=== PATIENT | male | born 1950 | race Caucasian/White ===

== ENCOUNTER 2022-07-25 07:32 | Outpatient (REF) | payer OTHER, SELFPAY ==
--- NOTE | ~2022-07-25 | MR_ITS ---
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 COMPARISON: None available. TECHNIQUE: Multiplanar, multisequence imaging of the brain was performed without intravenous contrast. FINDINGS: There is no acute infarction, mass, hemorrhage, or extra-axial collection. There is mild degree of diffuse brain parenchymal volume loss with prominence of ventricles and sulci. Mild nonspecific foci of T2/FLAIR hyperintensity are seen within the cerebral white matter. There is a focus of chronic microhemorrhage within the left periatrial white matter. There is subjective impression of decreased size of the caudate heads. The frontal horn width to intercaudate distance ratio (FH/CC) is abnormally low, estimated as 1.4. The flow voids of the major intracranial arteries appear intact. The bones and extracranial soft tissues are unremarkable. There is mild paranasal sinus mucosal thickening without fluid levels. MR/MR head/brain wo con IMPRESSION: 1. No acute infarct, mass lesion, intracranial hemorrhage, or evidence of hydrocephalus. Background changes of mild chronic microangiopathy. 2. Elevated frontal horn width to intercaudate distance ratio (FH/CC) and subjective impression of caudate head volume loss which can be seen in the setting of Nolan's disease but should be clinically correlated.
== END 2022-07-25 07:33 | disposition home or self-care (01) ==
LOC: HO.MRI 07:32
PROVIDERS: PCP Internal Medicine; Visit Provider Psychiatry & Neurology Neurology
DX: G10 Huntington's disease (principal)
CPT/HCPCS: 70551

== ENCOUNTER 2025-04-08 12:55 | Emergency (ER) | payer MEDICARE, OTHER, SELFPAY ==
[2025-04-08] VITALS (10 sets, daily range): BP systolic 109–158; BP diastolic 60–87; PULSE 69–91; RESP 16–25; TEMP 36.9–37.3; O2SAT 93–98; BMI 25.4
--- NOTE | 2025-04-08 | ECG_ITS ---
Test Reason : weakness Blood Pressure : */* mmHG Vent. Rate : 79 BPM Atrial Rate : 79 BPM P-R Int : 146 ms QRS Dur : 80 ms QT Int : 390 ms P-R-T Axes : 0 5 34 degrees QTcB Int : 447 ms Normal sinus rhythm Normal ECG No previous ECGs available Referred By: Generic ED Physician Electronically Signed By: ALOK ARGUELLES MD
--- NOTE | ~2025-04-08 | US_ITS ---
EXAMINATION: US TRIPLEX LOWER EXTREMITY, RIGHT CLINICAL INFORMATION: Right leg swelling. COMPARISON: None available. TECHNIQUE: Color-flow triplex imaging with spectral analysis and compression Doppler were performed on the right lower extremity. FINDINGS: Respiratory variation, normal compression and augmented flow are noted throughout the right lower extremity. The visualized common femoral vein, superficial femoral vein, profunda femoral vein, popliteal vein and midcalf peroneal and posterior tibial venous segments show no evidence of deep venous thrombosis. There is no Braxton's cyst. US/US venous duplex LE RT IMPRESSION: No evidence of deep venous thrombosis involving the right lower extremity. Electronically signed by: Alexis Melton MD 04/08/2025 03:29 PM EDT
--- NOTE | ~2025-04-08 | CT_ITS ---
CLINICAL HISTORY: weakness, fall CT Brain without contrast Comparison: MR/SR - MR BRAIN WITHOUT IV CONTRAST - 07/25/22 08:26 EST FINDINGS: Cortical sulci: There is diffuse prominence of the cortical sulci compatible with age-related atrophy. Ventricles: Normal for age Brain parenchyma: There is patchy lucency throughout the deep white matter indicating chronic microvascular leukomalacia. Extra axial spaces: Normal Posterior Fossa: Normal Extracranial soft tissues: Normal Additional abnormality: Mucosal thickening of the left maxillary sinus. IMPRESSION: Age-related atrophy with chronic microvascular leukomalacia. No hemorrhage, mass effect, or acute findings identified. This document has been electronically signed by: Alexandrea Crow MD on 04/08/2025 18:05:27
--- NOTE | ~2025-04-08 | XR_ITS ---
EXAMINATION: XR CHEST CLINICAL INFORMATION: cough COMPARISON: None available. TECHNIQUE: 2 views of the chest were obtained. FINDINGS: The cardiac, hilar, and mediastinal contours are normal. Low lung volumes, with mild prominence of the background bronchovascular markings. No consolidations. No pneumothorax or pleural effusion. There is no focal osseous or soft tissue abnormality. XR/XR chest 2V IMPRESSION: Low lung volumes with mild prominence of the background bronchovascular markings. No discrete consolidative pneumonia. Electronically signed by: Alexis Melton MD 04/08/2025 03:00 PM EDT
--- OUTSIDE RECORDS SUMMARY | 2025-04-08 13:49 | XMS_ITS | Clinical Summary ---
Author Organization [facility] Address [address] [place] [address] Care Team Providers Care Lathe Mechanic Name Role Phone Iask Ramesh Primary Care Provider Allergies Active Allergy Reactions Criticality Noted Date Comments Gadolinium-Containing Contrast Media Nausea And Vomiting 08/28/2017 Elevated BP Other Rash 08/27/2017 Pollen Extracts Rhinorrhea 02/08/2017 Simple Nausea,Vomiting No.26 Vomiting,Nausea And Vomiting High 06/06/2018 Medications digestive enzymes capsule Take 1 capsule by mouth daily. 50 billion Active FLUoxetine (PROzac) 20 mg capsule Take 20 mg by mouth. 10/27/2023 Active glucosamine-cho ndroitin 500-400 mg tablet Take 1 tablet by mouth 3 times daily. Active lactase 9,000 unit tablet,chewable Chew and swallow by mouth. Active levothyroxine (SYNTHROID, LEVOTHROID) 50 mcg tablet 08/27/2023 Active memantine (NAMENDA) 10 mg tablet 07/22/2023 Active tamsulosin (FLOMAX) 0.4 mg capsule Take 0.4 mg by mouth. 04/14/2024 Active vitamin A 3,000 mcg (10,000 unit) capsule Take by mouth daily. Active cholecalciferol , vitamin D3, (Vitamin D3) 5,000 unit tablet Take by mouth. Active multivitamin (THERAGRAN) tablet Take 1 tablet by mouth once a day. Active Lacto 51-B.animal,bif id-inulin (Fortify Probiotic) 50 billion cell-50 mg capsule,delayed release(DR/EC) Take by mouth. 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 Vitamin D deficiency 09/22/2018 Transitional cell carcinoma of bladder 2 Overview (05/20/2024): Dr. Her, annual visits as of 07/2016 Diagnosed 10/2011 Calcium oxalate kidney stones 09/05/2009 Overview (05/20/2024): 1977-Nephrolithotomy Hearing loss 09/05/2009 Overview (05/20/2024): Mild bilateral IMO update Encounters Date Type Department Care Team Description 02/24/2025 Telephone [facility] [address], [place] [id number] Sharon Scott [place] 01/27/2025 2:45 PM EDT Office Visit [facility] [address], [place] [id number] Dax Fine MD Donya's disease (HCC) (Primary Dx); Mild cognitive impairment from Last 3 Months Family History Medical History Relation Name Comments Dementia Brother Darcy body mary ntia Multiple sclerosis Cousin 1 Donya's disease Cousin 2 Myocardial Infarction Father Alzheimer's disease Mother Donya's disease Other 2 of pa tient's maternal aunts Breast cancer Sister Relation Name Status Comments Brother Cousin 1 Alive Cousin 2 Father Mother Other Alive Sister Social History Tobacco Use Types Packs/Day Years Used Date Smoking Tobacco: Former Cigarettes Smokeless Tobacco: Never Tobacco Cessation:Counseling Given: Not Answered Alcohol Use Standard Drinks/Week Comments Never 0 (1 standard drink = 0.6 oz pur e alcohol) Sex and Gender Information Value Date Recorded Sex Assigned at Male 01/27/2025 1:25 PM EDT Legal Sex Male 10:03 AM EDT Gender Identity Not on file Sexual Orientation Not on file Last Filed Vital Signs Vital Sign Reading Time Taken Comments Blood Pressure 126/77 01/27/2025 2:39 PM EDT Pulse 77 01/27/2025 2:39 PM EDT Temperature 36.5 C (97.7 F) 01/27/2025 2:22 PM EDT Respiratory Rate 18 01/27/2025 2:22 PM EDT Oxygen Saturation - - Inhaled Oxygen Concentration - - Weight 82 kg (180 lb 12.8 oz) 01/27/2025 2:22 PM EDT Height - - Body Mass Index - - Plan of Treatment Upcoming Encounters Date Type Department Care Team (Late st Contact Info) Description 07/14/2025 2:45 PM EST Office Visit [facility] [address] [place] [address] Dax Fine MD [address] [place] [address] [place] [address] Health Maintenance Due Date Last Done Comments Hepatitis C Screening [address] Lung Cancer Screening (Baseline) 1998 RSV Vaccine (60+ years old and patients) (1 - 1-dose 75+ series) 2023 COVID-19 Vaccine ( season) 2024 08/29/2021, 11/15/2020, 10/27/2020 Alcohol/Substance Use Screening 09/09/2024 Depression Screening and Follow-Up 09/09/2024 Health Care Proxy Review 09/09/2024 Social Drivers of Health Annual Screening 09/09/2024 Influenza Vaccine (#1) 2025 , 07/07/2023, 06/09/2023, Additional history exists DTaP,Tdap,and Td Vaccines (4 - Td or Tdap) 02/16/2033 02/16/2023, 03/30/2022, 07/20/2010 Pneumococcal Vaccine: 50+ Years Completed 07/08/2019, 07/22/2015, 07/13/2013, Additional history exists Zoster Vaccines Completed 09/19/2019, 07/10, 08/11/2010 Hepatitis B Vaccines Aged Out No long er eligible based on patient's age to complete this topic Insurance [facility] [address] MEDICARE [employer] Care Teams Lathe Mechanic Relationship Specialty Start Date End Date Isak Ramesh [address] [place] [id number] PCP - General Physician Can Line Operator 05/04/24
--- OUTSIDE RECORDS SUMMARY | 2025-04-08 13:49 | XMS_ITS | Patient Health Record ---
Author Organization [facility] Address [address] [facility] [address] [place] [address] Support Name Relationship Address Phone Jesus Roberson Guarantor Unknown [phone] Allergies Allergen (clinical drug ingredient) Drug/Non Drug Allergy documented on EMR Reaction Allergy Type Onset Date Status Gadolinium vomiting Drug Allergy Active Reason For Referral No Information Medications Medication SIG (Take, Route, Frequency, Duration) Notes Start Date End Date Status Oscimin 0.125 MG Oral; Duration: 90 Days Active Synthroid 50 MCG Oral; Duration: 90 Days Not-Taking Synthroid 50 MCG Oral; Duration: 90 Days Not-Taking Tamsulosin HCl 0.4 MG Oral; Duration: 90 Days Active Tamsulosin HCl 0.4 MG Oral; Duration: 90 Days Not-Taking FLUoxetine HCl 20 MG Oral; Duration: 90 Days Active Memantine HCl 10 MG Oral; Duration: 90 Days Active Levothyroxine Sodium 50 MCG Oral; Duration: 90 Days Active Social History Tobacco Use: Social History Observation Description Date Details (start date - stop date) Former Smoker NA - NA Sex Assigned At : Social History Observation Description Sex Assigned At Male Tobacco Use/Smoking Question Answer Notes Tobacco use: former smoker Alcohol Screen (Audit-C) Question Answer Notes Did you have a drink contain ing alcohol in the past year? Yes How often did you have a dri nk containing alcohol in the past year? Monthly or less (1 point) How many drinks did you have on a typical day when you were drinking in the past year? 1 or 2 drinks (0 point) How often did you have 6 or more drinks on one occasion in the past year? Less than monthly (1 point) Points 2 Interpretation Negative Sexual History Question Answer Notes Had sex in the past 12 months (vaginal, oral, or anal)? No Have you ever had a Sexually transmitted disease ? No Problems Problem Type SNOMED Code ICD Code Onset Dates Problem Status W/U Status Risk Notes Problem [place]'s disease (92945158) Ebony's disease (G10) Active confirmed Problem Anxiety (32844173) Anxiety (F41.9) Active confirmed Problem Patient encounter procedure (553866522) Encounter to establish care (Z76.89) Active confirmed Problem Urinary retention (980244513) Urinary retention (R33.9) Active confirmed Plan Of Treatment No Information Insurance Providers Payer Name Payer Address Payer Phone Subscriber Number Group Number Insured Name Patient Relationship to Insured Coverage Start Date Coverage End Date [employer] [place] [employer] [address] [place] [address] need id Jesus Roberson Self - patient is the insured [facility] [address] [place], [place] [id number] need id Jesus Roberson Self - patient is the insured Medical (General) History Medical History History ICD Code Arthritis bladder cancer ebony's disease Irregular heart beat irritable bowel syndrome Surgical History Surgery Date(Month/Year) vasectomy 1979 Kidney stones 2009
--- OUTSIDE RECORDS SUMMARY | 2025-04-08 13:49 | XMS_ITS | Encounter Summary ---
Author Organization [facility] Address [address] [place] [address] Care Team Providers Care Special Distribution Clerk Name Role Phone Physician, Pcp Unknown Primary Care Provider Deirdre vailable Encounter Details Date Type Department Care Team (Late st Contact Info) Description 01/27/2025 Lab Requisition [facility] - Main Lab [address] [facility] [place] [address] Pascual Her MD [address] [place] [address] Personal history of malignant neoplasm of bladder Social History Tobacco Use Types Packs/Day Years Used Date Smoking Tobacco: Former Cigarettes 1 25.9 0 09/09/1963 - 07/24/1989 Smokeless Tobacco: Never Alcohol Use Standard Drinks/Week Comments Yes 0 (1 standard drink = 0.6 oz pur e alcohol) Sex and Gender Information Value Date Recorded Sex Assigned at Not on file Legal Sex Male 1:36 PM EST Gender Identity Not on file Sexual Orientation Not on file documented as of this encounter Plan of Treatment Not on file documented as of this encounter Procedures Procedure Name Priority Date/Time Associated Diagnosis Comments AP OUTSIDE CONSULT Routine 01/21/2025 12 :00 AM EDT Personal history of malignant neoplasm of bladder documented in this encounter Results * Anatomic pathology outside consult (01/21/2025 12:00 AM EDT) Final Diagnosis A. Cystoscopic urine, [id number]: Negative for high grade urothelial carcinoma. Results of UroVysion fluorescence in situ hybridization (FISH) testing: CEP3: Normal CEP7: Normal CEP17: Normal LSI 9p21: Normal Interpretation: Normal profile Controls stained appropriately. Note: The results are intended as a screening device and should be interpreted in association with other clinical and pathological findings. 02/09/2025 11:18 AM EDT [facility] Clinical Information History of bladder neoplasm (malignant) Z85.51 Urine Cytology/FISH (now) 02/09/2025 11:18 AM EDT [facility] Gross Description A. Cystoscopic, [id number]: Received one ThinPrep slide for cytology and one ThinPrep slide for UroVysion FISH 02/09/2025 11:18 AM EDT [facility] Disclaimer Unless otherwise specified, all tissue is 10% NB formalin fixed and paraffin embedded. Technical pathology services provided by [facility] [address] [facility] [address] [place] [address] (CLIA #[id number]/Catia Fischer MD, Transfer Professor) 02/09/2025 11:18 AM EDT [facility] Tissue Cystoscope / Unknown 01/21/2025 01/27/2025 9:21 AM EDT us Pascual Her MD LAB PATHOLOGY ORDERABLES Final Result [facility] [address] [place] [address], documented in this encounter Visit Diagnoses Diagnosis Personal history of malignant neoplasm of bladder documented in this encounter Care Teams Special Distribution Clerk Relationship Specialty Start Date End Date Physician, Pcp Unknown PCP - General 01/27/25 documented as of this encounter
[2025-04-08 14:28] LABS: MANUAL DIFF FLAG NO
[2025-04-08 14:32] LABS: Hematocrit 36.8 % (42.0-52.0); Hemoglobin 13.2 g/dl (14.0-18.0); Imm Gran Abs Auto 0.03 X10*3/uL (0.00-0.03); Imm Gran Pct Auto 0.3 % (0.0-0.4); Lymphocytes Absolute Auto 0.5 X10*3/uL (1.2-4.9); Mean Corpuscular HGB Conc 35.9 g/dl (31.0-36.0); Mean Corpuscular Hemoglobin 31.1 pg (27.0-33.0); Mean Corpuscular Volume 86.6 fL (80.0-98.0); NRBC Abs Auto 0.000 X10*3/uL (0.0-0.012); NRBC Pct Auto 0.0 /100WBC (0.0-0.2); Platelet Count 156 X10*3/uL (160-400); Red Blood Count 4.25 X10*6/uL (4.60-5.80); White Blood Count 9.2 X10*3/uL (4.8-10.8)
[2025-04-08 14:45] LABS: Alanine Aminotransferase 22 U/L (0-40); Albumin Level 4.3 g/dL (3.5-5.0); Alkaline Phosphatase 66 U/L (39-117); Anion Gap 11 (12-20); Aspartate Amino Transferase 26 U/L (5-37); Blood Urea Nitrogen 15 mg/dL (9-16); Calcium 8.6 mg/dL (8.4-10.2); Carbon Dioxide 26 mmol/L (22-29); Chloride 108 mmol/L (96-108); Creatinine Clr Calc Pharmacy 51.8; Estimated Glomerular Filt Rate 54; Potassium 4.3 mmol/L (3.3-5.1); Sodium 141 mmol/L (135-145); Total Protein 6.7 g/dL (6.5-8.0)
--- NOTE | 2025-04-08 14:47 | ED.WEAKNESS ---
HPI - Weakness General Chief complaint: Weakness Stated complaint: WEAKNESS S/P CRUISE Time Seen by Provider: 04/08/25 14:47 Source: patient, EMS, RN notes reviewed and old records reviewed Mode of arrival: EMS Limitations: no limitations History of Present Illness ED Provider: Dada Gorman PA-C HPI Narrative: 74-year-old male with a history of Donya's disease diagnosed 4 years ago, history of hypertension, hypothyroidism, PA, who presents to the ER from home via EMS for evaluation of generalized weakness for the last 2 or 3 days. Patient just returned from a cruise in [place] on 04/02. patient's reports that he was okay on the cruise. He had pneumonia in September and has been declining clinically and cognitively since then. The last couple of days he has had worsening generalized weakness, some memory issues. Today his states he was walking from the living room to the kitchen when he stopped because he could no longer move his legs. She was able to get him to the rolling walker and we will him to the bathroom to use the bathroom. When he was trying to walk forward he fell slightly into the door and down to the ground. She was unable to get him up. EMS was called. denies that he hit his head. He is not on anticoagulation. He denies headache, neck pain, chest pain, shortness of breath. He has had a cough for the last several days. Denies any abdominal pain, nausea, vomiting, diarrhea. No fevers but he reports some chills. Denies any focal weakness, numbness, tingling. reports he has been incontinent of urine lately and has been wearing Depends. Denies dysuria or hematuria. MD Complaint: generalized weakness and difficulty walking Onset (ago): day(s) Duration: progressively worsening Location: generalized Relieving factors: none and rest Exacerbating factors: movement and exertion Associated symptoms: confusion and fever/chills Related Data Home Medications ?Medication ?Instructions ?Recorded ?Confirmed Lactobacillus rhamnosus GG 15 1 cap PO DAILY 04/08/25 04/08/25 billion cell sprinkle capsule (Culturelle) cholecalciferol (vitamin D3) 125 125 mcg PO SUWE 04/08/25 04/08/25 mcg (5,000 unit) tablet (Vitamin D3) fluoxetine 20 mg capsule 20 mg PO DAILY 04/08/25 04/08/25 geriatric zodfwzzz-uuyc-udmn 1 tab PO DAILY 04/08/25 04/08/25 vjvwebjrgxu-tegnzorgj-pbe C-Mn 500 1 cap PO DAILY 04/08/25 04/08/25 mg-400 mg capsule levothyroxine 50 mcg tablet 50 mcg PO DAILY@0600 04/08/25 04/08/25 memantine 10 mg tablet 10 mg PO BID 04/08/25 04/08/25 tamsulosin 0.4 mg capsule 0.4 mg PO BEDTIME 04/08/25 04/08/25 Previous Rx's ?Medication ?Instructions ?Recorded walker #1 ea 04/09/25 Allergies Allergy/AdvReac Type Severity Reaction Status Date / Time Iodinated Contrast Media Allergy Unknown Verified 04/08/25 13:13 (Contrast Dye) Review of Systems Review of Systems: Yes all other systems are reviewed and are negative [facility] Past Medical History Medical History (Updated 04/09/25 @ 11:46 by Sixto Mao PA-C) Abnormal gait Social History Social History Smoked in Last 30 Days: No Use of substances other than those prescribed or required for medical reasons: No Advance Directives: No Advance Directives Information Provided: Yes Physical Exam Exam: Exam: Appearance: Alert. Oriented X3. No acute distress. Head: normocephalic, atraumatic. Eyes: Pupils equal, round and reactive to light. ENT: Pharynx normal. No tonsillar swelling or exudate. Neck: Normal inspection. Neck supple. no c-spine tenderness CVS: Normal heart rate and rhythm. Pulses normal. Respiratory: No respiratory distress. Breath sounds normal. Abdomen: Soft and nontender. +BS x4 Skin: Skin warm and dry. Normal skin color. Normal skin turgor. No rashes. Extremities: right lower extremity edema involving the right ankle only, no calf tenderness. No joint swelling. Neuro/psych: Oriented X 3. generalized weakness noted throughout, nonfocal, on repeat examination of the left lower extremity patient was unable to lift off the bed against resistance. CN II-XII intact. Normal speech. able to stand but having difficulty moving feet Vital Signs: Vital Signs: Last Vital Signs Temp 97.9 F 04/09/25 06:20 Pulse 61 04/09/25 06:20 Resp 16 04/09/25 06:20 BP 135/69 04/09/25 06:20 Pulse Ox 95 04/09/25 06:20 O2 Del Method Room Air 04/09/25 06:20 BMI result Body Mass Index 25.4 Course Reevaluation(s) Reevaluation #1: Sixto Mao PA-C: physician observation continued, no overnight events reported by nursing. VSS. Case management following for disposition to acute rehab. Time: 08:14 Reevaluation #2: Case management discharge home with [facility] home services. We will prescribe rolling walker for ambulation at home. Observation care revealed that patient does not meet medical necessity for hospitalization. Final disposition discussed with patient. The patient completed observation care at 11:44am on 04/09/25 Time: 11:44 Medications Administered Generic Name Dose Route Start Last Admin Trade Name Freq PRN Reason Stop Dose Admin Fluoxetine HCl 20 mg 04/09/25 09:00 04/09/25 11:28 Fluoxetine Hcl 20 Mg Capsule PO 20 mg DAILY BRANDEE Administration Levothyroxine Sodium 50 mcg 04/09/25 08:15 04/09/25 11:28 Levothyroxine Sodium 50 Mcg Tablet PO Not Given DAILY@0600 BRANDEE Memantine 10 mg 04/09/25 09:00 04/09/25 11:28 Memantine Hcl 10 Mg Tablet PO 10 mg BID BRANDEE Administration Multivitamins/Vitamin C 1 tab 04/09/25 09:00 04/09/25 11:28 Multivitamin Tablet PO 1 tab DAILY BRANDEE Administration Medical Decision Making Medical Decision Making MDM Narrative: 74-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 Fall was witnessed by the and more of a fall into a door and slide down to the knees. No head stike or LOC. He has had difficulty ambulating and generally weak. Exam with some LLE weakness more than the right. Bilateral UE strength is symmetrical. Given his recent travel and lower extremity swelling of the right ankle and ultrasound of the right lower extremity was done, this does not show any evidence of DVT. His labs show some anemia with hemoglobin of 13. he has no other metabolic derangement. Troponin is negative. Chest x-ray is clear. COVID, flu, RSV are all negative. Urinalysis is negative for infection. the cause of his generalized weakness and difficulty ambulating is not 100% clear. Concern this may be progression of his Adams's disease. When working with the [facility] today he was very weak and could not lift his legs to walk. he is supposed to have outpatient PT tomorrow but does not think she can get him there. will place patient in physician observation. Will have PT evlaluate the patient and have case management consult for possible acute rehab/short term rehab. and patient in agreement. FULL CODE discussed. physician observation started at 1644. Differential Diagnosis Differential Diagnoses: The differential diagnosis associated with the presentation includes dehydration, UTI, pneumonia, dehydration, viral illness, stroke, Adams disease progression Admission/Observation Consideration of admission/observation: Escalation of care including admission/observation considered Lab Data MDM Lab Attestation statement: I reviewed the patient's lab results. anemia, thrombocytopenia, no major metabolic derangement 04/08/25 14:25 04/08/25 14:25 Labs: Lab Results 04/08/25 04/08/25 Range/Units 14:25 15:55 WBC 9.2 (4.8-10.8) X10*3/uL RBC 4.25 L (4.60-5.80) X10*6/uL Hgb 13.2 L (14.0-18.0) g/dl Hct 36.8 L (42.0-52.0) % MCV 86.6 (80.0-98.0) fL MCH 31.1 (27.0-33.0) pg MCHC 35.9 (31.0-36.0) g/dl RDW 13.2 (11.0-16.0) % Plt Count 156 L (160-400) X10*3/uL MPV 9.0 L (9.4-12.4) fL Immature Gran % (Auto) 0.3 (0.0-0.4) % Neut % (Auto) 86.9 H (45-73) % Lymph % (Auto) 5.0 L (20-40) % [place] % (Auto) 6.6 (2-11) % Eos % (Auto) 0.9 (0-4) % Baso % (Auto) 0.3 (0-2) % Lymph # (Auto) 0.5 L (1.2-4.9) X10*3/uL [place] # (Auto) 0.6 (0.1-1.2) X10*3/uL Eos # (Auto) 0.1 (0.0-0.4) X10*3/uL Baso # (Auto) 0.0 (0.0-0.2) X10*3/uL Abs Immat Gran (auto) 0.03 (0.00-0.03) X10*3/uL Absolute Neuts (auto) 8.0 (2.0-8.3) x10*3/uL Absolute Nucleated RBC 0.000 (0.0-0.012) X10*3/uL Nucleated RBC % (auto) 0.0 (0.0-0.2) /100WBC Sodium 141 (135-145) mmol/L Potassium 4.3 (3.3-5.1) mmol/L Chloride 108 (96-108) mmol/L Carbon Dioxide 26 (22-29) mmol/L Anion Gap 11 L (12-20) BUN 15 (9-16) mg/dL Creatinine 1.29 (0.5-1.4) mg/dL Estim Creat Clear Calc 51.8 Estimated GFR 54 Random Glucose 114 (60-115) mg/dL Calcium 8.6 (8.4-10.2) mg/dL Total Bilirubin 0.6 (0.0-1.0) mg/dL AST 26 (5-37) U/L ALT 22 (0-40) U/L Alkaline Phosphatase 66 (39-117) U/L Troponin I High Sens < 2.7 (<3.5-35.0) ng/L B-Natriuretic Peptide 33 (<100) pg/mL Total Protein 6.7 (6.5-8.0) g/dL Albumin 4.3 (3.5-5.0) g/dL TSH 1.52 (0.32-4.0) uIU/mL Urine Color Yellow Urine Appearance Clear Urine pH 5.5 (5.0-9.0) Ur Specific [place] 1.020 (1.005-1.025) Urine Protein Negative (Neg-Trace) mg/dL Urine Glucose (UA) Negative (Negative) mg/dL Urine Ketones Negative (Negative) mg/dL Urine Blood Negative (Negative) Urine Nitrite Negative (Negative) Ur Leukocyte Esterase Negative (Negative) Urine RBC 0-2 (0-2) /HPF Urine WBC 0-5 (0-5) /HPF Ur Squamous Epith Cells 0-2 (0-2) /HPF Urine Bacteria None Seen (None Seen) Hyaline Casts 0-2 (0-2) /LPF Influenza Type A (PCR) NEGATIVE (Negative) Influenza Type B (PCR) NEGATIVE (Negative) RSV RNA Qual (PCR) NEGATIVE (Negative) SARS-CoV-2 RNA (RT-PCR) NEGATIVE (Negative) Independent Interpretation I performed an independent interpretation of an: EKG, Plain X-Ray and CT Scan Interpretation: chest x-ray is clear with no focal opacity EKG with normal sinus rhythm, ventricular rate 79 beats per minute, normal DE interval, normal QTC, no ST segment elevations or depressions CT head without acute bleeding or edema Radiology Impression Discussion of test interpretation with radiology: I have reviewed the radiologist's reading. Radiologist Impression: XR/XR chest 2V IMPRESSION: Low lung volumes with mild prominence of the background bronchovascular markings. No discrete consolidative pneumonia. CT head: Age-related atrophy with chronic microvascular leukomalacia. No hemorrhage, mass effect, or acute findings identified. External Record Review External record reviewed: Outpatient record Prescription Management I considered prescription management with: Antibiotic Discharge Plan Discharge Clinical Impression: Abnormal gait, Donya's disease Patient Disposition: Home, Self-Care Additional Instructions: Please follow up with your PCP. Return to the emergency department if you experience new/worsening/concerning symptoms. Prescriptions: New (DME) walker Misc See Rx Instructions .Route Qty: 1 0RF Rx Instructions: As directed No Action tamsulosin 0.4 mg Capsule 0.4 mg PO BEDTIME levothyroxine 50 mcg Tablet 50 mcg PO DAILY@0600 fluoxetine 20 mg Capsule 20 mg PO DAILY memantine 10 mg Tablet 10 mg PO BID Multivitamin w/Minerals, Iron Tablet 1 tab PO DAILY cholecalciferol (vitamin D3) [Vitamin D3] 125 mcg (5,000 unit) Tablet 125 mcg PO [place] Culturelle 15 billion cell Capsule, Sprinkle 1 cap PO DAILY iehwssrzcoq-vkacgcpip-ndr C-Mn [Glucosamine 1500 Complex] 500-400 mg Capsule 1 cap PO DAILY Print Language: Telugu
[2025-04-08 14:51] LABS: B Type Natriuretic Peptide 33 pg/mL (<100)
[2025-04-08 14:56] LABS: Troponin-I High Sensitivity < 2.7 ng/L (<3.5-35.0)
[2025-04-08 15:11] LABS: Resp Syncy Virus RNA Qual PCR NEGATIVE (Negative); SARS COV2 PCR INHOUSE NEGATIVE (Negative)
[2025-04-08 16:05] LABS: Appearance Urine Clear; Glucose Urine UA Negative (Negative); PH 5.5 (5.0-9.0); Specific Gravity - Urine 1.020 (1.005-1.025)
--- NOTE | 2025-04-08 18:14 | PC.NURSE ---
Pt MAEGAN. C/o generalized weakness and cough. Pt came back from a cruise in [place] on Saturday and since then hasn't been feeling well. Hes alert and oriented, [place]. Denies pain, shortness of breath, n/v, or dizziness. He has some swelling in his right foot and ankle that started while on the cruise. +CSM. He has a hx of Breckenridge's disease. He is able to stand at bedside with assistance but is very weak. Hes voiding in a urinal. Family is at bedside. Pending PT chuyita.
--- NOTE | 2025-04-08 18:23 | MHC.CM.ED ---
Addendum entered by Kenya Dueñas 04/09/25 11:41: PT SEEN BY PHYSICAL THERAPY AND CLEARED TO GO HOME WITH [facility] WAS PREFERRED, HOWEVER UNABLE TO ACCEPT REFERRAL PT WILL DC HOME WITH [facility] FOR PT AND SN Original Note: CM met with patient and his . Pt had weakness and a fall. Just returned from an [place] cruise. Pt was diagnosed with [place]'s disease 4 years ago. Pt lives with his . Uses a cane at times. Used a scooter while on his cruise for distances. Pt is independent. According to patient's , he has been declining since September. He was supposed to start outpatient PT tomorrow. is unsure how she would get him there. Pt is now having difficulty ambulating. Pt was in the [employer] for 22 years. 30% vested. Insurance is Medicare and [employer] for life. [facility] [place] PCP is Dr. Gomez. He [facility] in [place]. Pt has a neurologist in [place] Dr. Dax Suero. PT is pending. CM will refer to acute rehabs. If home PT is recommended, family would like referral to [facility]. CM will follow for discharge planning.
--- NOTE | 2025-04-08 19:32 | PHA.MEDREC ---
Addendum entered by Latoya Forte RPh 04/08/25 21:32: Reviewed by [facility] Original Note: Pharmacy Consult ? Medication Reconciliation Pharmacy has completed the medication reconciliation. Spoke with pt and he stated [facility] I got a list from the [facility] and confirm with pt his meds but the Culturelle and said to call his ; pt also confirmed he takes a Vitamin D2 tab twice a week on [address] WE (pt not sure of the dose). I spoke with pt and she confirmed the pt medications; per pt taking, Culturelle 15 billion once daily and a Vitamin D3 125mcg (didn't know how pt took it) not a D2 tablet. I spoke with pt again and he now stated he is taking the Vitamin D3 125mcg tab CRUZ & WE not the D2 anymore saying the D2 tab was too much for him.
--- NOTE | 2025-04-08 21:05 | PC.NURSE ---
RN received a call from pts - wanted to see how pt was doing. RN reassured pt was doing well and being monitored. asked if he could get fluids- RN informed her kindly that any ordered would be up to the physicians discretion and RNs do not order any meds. understood and was hopeful pt would get better soon. RN reassured that she can call anytime to check up on pt.
--- NOTE | 2025-04-08 21:36 | PC.NURSE ---
RN called overflow to give report. Pt will be transported shortly.
[2025-04-09 06:20] VITALS: BP 135/69; PULSE 61; RESP 16; TEMP 36.6; O2SAT 95
[2025-04-09 11:22] VITALS: BP 135/69; PULSE 61; O2SAT 95
[2025-04-09 12:04] VITALS: BP 135/69; PULSE 61; RESP 16; TEMP 36.6; O2SAT 95
== END 2025-04-09 12:16 | disposition home or self-care (01) ==
PROVIDERS: Physician Assistant; Emergency Provider Emergency Medicine Emergency Medical Services; PCP Physician Assistant
DX: G10 Huntington's disease (principal); R26.9 Unspecified abnormalities of gait and mobility; R60.0 Localized edema; R51.9 Headache, unspecified; R06.02 Shortness of breath; Z79.899 Other long term (current) drug therapy; Z03.818 Encounter for observation for suspected exposure to other biological agents ruled out
CPT/HCPCS: 70450; 71046; 80053; 81001; 83880; 84443; 84484; 85025; 87637; 93005; 93971; 97162; 99285

== ENCOUNTER → 2025-04-08 14:08 | Outpatient (BNV) | payer MEDICARE, OTHER, SELFPAY | PROVIDERS: Emergency Provider Emergency Medicine Emergency Medical Services; PCP Physician Assistant; Visit Provider Internal Medicine Cardiovascular Disease | DX: R53.1 Weakness (principal) | CPT/HCPCS: 93010 ==

== ENCOUNTER → 2025-04-08 14:44 | Outpatient (BNV) | payer MEDICARE, OTHER, SELFPAY | PROVIDERS: Emergency Provider Emergency Medicine Emergency Medical Services; PCP Physician Assistant; Visit Provider Radiology Diagnostic Radiology | DX: R22.41 Localized swelling, mass and lump, right lower limb (principal); R05.9 Cough, unspecified | CPT/HCPCS: 71046; 93971 ==